=== PATIENT | female | born 1985 | race Caucasian/White ===

== ENCOUNTER 2017-08-29 11:35 | Observation (INO) | payer MEDICAID ==
[2017-08-29] MEDS ORDERED: BETAMETHASONE ACET (6MG/ML) 5ML VIAL IM ONE (11:45)
[2017-08-29] MEDS ORDERED: PRENCAP61 PO (12:55)
[2017-08-29 13:37] LABS: Basophils # (auto) 0 uL; Basophils % (auto) 0.3 % (0.0-2.0); Eosinophils # (auto) 0.1 uL; Eosinophils % (auto) 0.8 % (0.0-7.0); Hematocrit 36.2 % (36.0-46.0); Hemoglobin 12.4 g/dL (12.2-16.2); Lymphocytes # (auto) 1.5 uL; Lymphocytes % (auto) 13.7 % (10.0-50.0); Mean Corpuscular Hemoglobin 30.1 pg (28.0-32.0); Mean Corpuscular Hgb Conc. 34.3 g/dL (32.0-36.0); Mean Corpuscular Volume 87.6 fL (80.0-100.0); Monocytes # (auto) 0.8 uL; Neutrophils # (auto) 8.5 uL; Neutrophils % (auto) 78.2 % (37.0-80.0); Nucleated Red Blood Cells % 0.1 %; Platelet Count (auto) 244 10^3/uL (140-450); Red Blood Cells 4.13 10^6/uL (4.0-5.20); Red Cell Distribution Width 12.8 % (11.8-14.3); White Blood Cell 10.8 10^3/uL (4.4-10.8)
[2017-08-29 13:49] LABS: Albumin 2.9 g/dL (3.4-5.0); BUN/Creatinine Ratio 16.1; Bilirubin, Total 0.3 mg/dL (0.2-1.0); Calcium 8.2 mg/dL (8.5-10.1); Potassium 3.7 mmol/L (3.5-5.1); Uric Acid 4.4 mg/dL (2.6-6.0)
[2017-08-29 13:51] LABS: INR 0.9 (0.9-1.15); Partial Thromboplastin Time 28.4 sec (23.78-33.04); Prothrombin Time 9.7 sec (9.27-12.13)
== END 2017-08-29 14:25 | disposition home or self-care (01) | DRG 566 ==
LOC: LDRP 11:35
PROVIDERS: ADMIT Obstetrics & Gynecology; ATTEND Obstetrics & Gynecology
DX: O13.3 Gestational [pregnancy-induced] hypertension without significant proteinuria, third trimester (principal); G43.909 Migraine, unspecified, not intractable, without status migrainosus; Z3A.30 30 weeks gestation of pregnancy
CPT/HCPCS: 36415; 59025; 76818; 80053; 84550; 85025; 85610; 85730; G0378; J0702

== ENCOUNTER 2017-08-30 14:05 | Observation (INO) | payer MEDICAID ==
[~2017-08-30 14:05] MED LIST: PRENCAP61 PO
[2017-08-30] MEDS ORDERED: BETAMETHASONE ACET (6MG/ML) 5ML VIAL IM SCH (15:00)
== END 2017-08-30 15:00 | disposition home or self-care (01) | DRG 566 ==
LOC: LDRP 14:05
PROVIDERS: ADMIT Obstetrics & Gynecology; ATTEND Obstetrics & Gynecology
DX: O13.3 Gestational [pregnancy-induced] hypertension without significant proteinuria, third trimester (principal); O26.893 Other specified pregnancy related conditions, third trimester; G43.909 Migraine, unspecified, not intractable, without status migrainosus; N89.8 Other specified noninflammatory disorders of vagina; Z3A.30 30 weeks gestation of pregnancy
CPT/HCPCS: 59025; 81002; 96372; G0378

== ENCOUNTER 2017-09-01 09:35 | Observation (INO) | payer MEDICAID ==
[2017-09-01] MEDS ORDERED: LABE200T18 PO (10:52)
[2017-09-01 12:34] LABS: 24 Hr. Total Protein, Urine 393.4 mg/24 Hr (<149.1); Protein, Urine 12.9 mg/dL (0.0-11.9)
== END 2017-09-01 12:45 | disposition home or self-care (01) | DRG 566 ==
LOC: LDRP 09:35
PROVIDERS: ADMIT Specialist; ATTEND Specialist
DX: O13.3 Gestational [pregnancy-induced] hypertension without significant proteinuria, third trimester (principal); O26.893 Other specified pregnancy related conditions, third trimester; G43.909 Migraine, unspecified, not intractable, without status migrainosus; O62.9 Abnormality of forces of labor, unspecified; Z3A.30 30 weeks gestation of pregnancy
CPT/HCPCS: 59025; 76818; 81002; 84156; G0378

== ENCOUNTER 2017-09-06 18:45 | Observation (INO) | payer MEDICAID ==
[~2017-09-06] VITALS: Ht 172.7 cm; Wt 81.6 kg
[~2017-09-06 18:45] MED LIST changes: +LABE200T18 PO
== END 2017-09-06 21:09 | disposition home or self-care (01) | DRG 566 ==
LOC: LDRP 18:45
PROVIDERS: ADMIT Obstetrics & Gynecology; ATTEND Obstetrics & Gynecology
DX: O13.3 Gestational [pregnancy-induced] hypertension without significant proteinuria, third trimester (principal); O99.355 Diseases of the nervous system complicating the puerperium; O26.893 Other specified pregnancy related conditions, third trimester; G43.909 Migraine, unspecified, not intractable, without status migrainosus; N89.8 Other specified noninflammatory disorders of vagina; Z87.891 Personal history of nicotine dependence; Z3A.31 31 weeks gestation of pregnancy
CPT/HCPCS: 59025; 76818; 81002; G0378

== ENCOUNTER 2017-09-09 19:17 | Observation (INO) | payer MEDICAID ==
[~2017-09-09] VITALS: Ht 172.7 cm; Wt 85.3 kg
== END 2017-09-09 22:31 | disposition home or self-care (01) | DRG 566 ==
LOC: LDRP 19:17
PROVIDERS: ADMIT Specialist; ATTEND Specialist
DX: O13.3 Gestational [pregnancy-induced] hypertension without significant proteinuria, third trimester (principal); Z3A.31 31 weeks gestation of pregnancy
CPT/HCPCS: 76818; G0378; 59025; 81002

== ENCOUNTER 2017-09-13 10:48 | Observation (INO) | payer MEDICAID ==
[2017-09-13 12:57] LABS: Basophils # (auto) 0 uL; Basophils % (auto) 0.5 % (0.0-2.0); Eosinophils # (auto) 0 uL; Eosinophils % (auto) 0.6 % (0.0-7.0); Hematocrit 34.5 % (36.0-46.0); Hemoglobin 11.8 g/dL (12.2-16.2); Lymphocytes # (auto) 1.2 uL; Mean Corpuscular Hemoglobin 29.5 pg (28.0-32.0); Mean Corpuscular Hgb Conc. 34.1 g/dL (32.0-36.0); Mean Corpuscular Volume 86.4 fL (80.0-100.0); Monocytes # (auto) 0.8 uL; Monocytes % (auto) 10.5 % (0.0-12.0); Neutrophils # (auto) 5.8 uL; Neutrophils % (auto) 73.4 % (37.0-80.0); Platelet Count (auto) 211 10^3/uL (140-450); Red Cell Distribution Width 12.9 % (11.8-14.3); White Blood Cell 7.9 10^3/uL (4.4-10.8)
[2017-09-13 13:13] LABS: INR 0.87 (0.9-1.15); Prothrombin Time 9.4 sec (9.27-12.13)
[2017-09-13 13:15] LABS: Albumin 2.8 g/dL (3.4-5.0); BUN/Creatinine Ratio 13.1; Bilirubin, Total 0.3 mg/dL (0.2-1.0); Calcium 8.3 mg/dL (8.5-10.1); Potassium 4.2 mmol/L (3.5-5.1); Total Protein 6.8 g/dL (6.4-8.2); Uric Acid 4.1 mg/dL (2.6-6.0)
== END 2017-09-13 13:50 | disposition home or self-care (01) | DRG 566 ==
LOC: LDRP 10:48
PROVIDERS: ADMIT Specialist; ATTEND Specialist
DX: O13.3 Gestational [pregnancy-induced] hypertension without significant proteinuria, third trimester (principal); O99.353 Diseases of the nervous system complicating pregnancy, third trimester; G43.909 Migraine, unspecified, not intractable, without status migrainosus; Z87.891 Personal history of nicotine dependence; Z3A.32 32 weeks gestation of pregnancy
CPT/HCPCS: 36415; 59025; 76818; 80053; 81002; 84550; 85025; 85610; 85730; G0378

== ENCOUNTER 2017-10-04 09:55 | Observation (INO) | payer MEDICAID ==
[2017-10-04 11:57] LABS: Basophils # (auto) 0 uL; Basophils % (auto) 0.3 % (0.0-2.0); Eosinophils # (auto) 0.1 uL; Eosinophils % (auto) 0.9 % (0.0-7.0); Hematocrit 36.7 % (36.0-46.0); Hemoglobin 12.4 g/dL (12.2-16.2); Lymphocytes # (auto) 1.4 uL; Lymphocytes % (auto) 14.7 % (10.0-50.0); Mean Corpuscular Hgb Conc. 33.9 g/dL (32.0-36.0); Mean Corpuscular Volume 85.6 fL (80.0-100.0); Monocytes # (auto) 0.6 uL; Monocytes % (auto) 6.9 % (0.0-12.0); Neutrophils # (auto) 7.2 uL; Neutrophils % (auto) 77.2 % (37.0-80.0); Nucleated Red Blood Cells % 0.1 %; Platelet Count (auto) 223 10^3/uL (140-450); Red Blood Cells 4.28 10^6/uL (4.0-5.20); Red Cell Distribution Width 13.8 % (11.8-14.3); White Blood Cell 9.3 10^3/uL (4.4-10.8)
[2017-10-04 12:08] LABS: Protein, Urine 10.1 mg/dL (0.0-11.9)
[2017-10-04 12:10] LABS: INR 0.85 (0.9-1.15); Partial Thromboplastin Time 27.1 sec (23.78-33.04); Prothrombin Time 9.2 sec (9.27-12.13)
[2017-10-04 12:20] LABS: 24 Hr. Total Protein, Urine 313.1 mg/24 Hr (<149.1)
[2017-10-04 12:45] LABS: Albumin 2.7 g/dL (3.4-5.0); BUN/Creatinine Ratio 10.5; Bilirubin, Total 0.3 mg/dL (0.2-1.0); Calcium 8.1 mg/dL (8.5-10.1); Potassium 3.5 mmol/L (3.5-5.1); Total Protein 7.1 g/dL (6.4-8.2); Uric Acid 4.7 mg/dL (2.6-6.0)
== END 2017-10-04 13:15 | disposition home or self-care (01) | DRG 566 ==
LOC: LDRP 09:55
PROVIDERS: ADMIT Specialist; ATTEND Specialist
DX: O13.3 Gestational [pregnancy-induced] hypertension without significant proteinuria, third trimester (principal); Z3A.35 35 weeks gestation of pregnancy
CPT/HCPCS: 36415; 59025; 76818; 80053; 81002; 84156; 84550; 85025; 85610; 85730; G0378

== ENCOUNTER 2017-10-11 10:13 | Observation (INO) | payer MEDICAID | END 2017-10-11 11:50 | disposition home or self-care (01) | DRG 566 | LOC: LDRP 10:13 | PROVIDERS: ADMIT Specialist; ATTEND Specialist | DX: O13.3 Gestational [pregnancy-induced] hypertension without significant proteinuria, third trimester (principal); O99.353 Diseases of the nervous system complicating pregnancy, third trimester; G43.909 Migraine, unspecified, not intractable, without status migrainosus; Z3A.36 36 weeks gestation of pregnancy | CPT/HCPCS: 59025; 76818; 81002; G0378 ==

== ENCOUNTER 2017-10-13 11:02 | Observation (INO) | payer MEDICAID | END 2017-10-13 15:00 | disposition home or self-care (01) | DRG 566 | LOC: LDRP 11:02 | PROVIDERS: ADMIT Specialist; ATTEND Specialist | DX: O13.3 Gestational [pregnancy-induced] hypertension without significant proteinuria, third trimester (principal); Z3A.36 36 weeks gestation of pregnancy | CPT/HCPCS: 59025; 76818; 81002; G0378 ==

== ENCOUNTER 2017-10-17 09:00 | Observation (INO) | payer MEDICAID ==
[2017-10-17] MEDS ORDERED: LABETALOL HCL 200 MG TAB PO ONE (09:15)
[2017-10-17 10:23] LABS: Basophils # (auto) 0 uL; Basophils % (auto) 0.2 % (0.0-2.0); Eosinophils # (auto) 0.1 uL; Eosinophils % (auto) 0.7 % (0.0-7.0); Hematocrit 37.3 % (36.0-46.0); Hemoglobin 12.5 g/dL (12.2-16.2); Lymphocytes # (auto) 1.6 uL; Lymphocytes % (auto) 13.8 % (10.0-50.0); Mean Corpuscular Hgb Conc. 33.5 g/dL (32.0-36.0); Mean Corpuscular Volume 83.7 fL (80.0-100.0); Monocytes # (auto) 0.8 uL; Monocytes % (auto) 7.2 % (0.0-12.0); Neutrophils # (auto) 8.8 uL; Neutrophils % (auto) 78.1 % (37.0-80.0); Nucleated Red Blood Cells % 0.1 %; Platelet Count (auto) 230 10^3/uL (140-450); Red Blood Cells 4.45 10^6/uL (4.0-5.20); Red Cell Distribution Width 14.1 % (11.8-14.3); White Blood Cell 11.2 10^3/uL (4.4-10.8)
[2017-10-17 10:32] LABS: INR 0.86 (0.9-1.15); Partial Thromboplastin Time 28.5 sec (23.78-33.04); Prothrombin Time 9.3 sec (9.27-12.13)
[2017-10-17 10:34] LABS: Albumin 2.7 g/dL (3.4-5.0); BUN/Creatinine Ratio 17.7; Bilirubin, Total 0.3 mg/dL (0.2-1.0); Calcium 8.1 mg/dL (8.5-10.1); Potassium 3.8 mmol/L (3.5-5.1); Uric Acid 5.8 mg/dL (2.6-6.0)
== END 2017-10-17 10:50 | disposition home or self-care (01) | DRG 566 ==
LOC: LDRP 09:00
PROVIDERS: ADMIT Specialist; ATTEND Specialist
DX: O13.3 Gestational [pregnancy-induced] hypertension without significant proteinuria, third trimester (principal); O99.353 Diseases of the nervous system complicating pregnancy, third trimester; G43.909 Migraine, unspecified, not intractable, without status migrainosus; Z87.891 Personal history of nicotine dependence; Z3A.37 37 weeks gestation of pregnancy
CPT/HCPCS: 36415; 59025; 76818; 80053; 81002; 84550; 85025; 85610; 85730; G0378

== ENCOUNTER 2017-10-20 10:58 | Observation (INO) | payer MEDICAID | END 2017-10-20 13:02 | disposition home or self-care (01) | DRG 566 | LOC: LDRP 10:58 | PROVIDERS: ADMIT Obstetrics & Gynecology; ATTEND Obstetrics & Gynecology | DX: O13.3 Gestational [pregnancy-induced] hypertension without significant proteinuria, third trimester (principal); Z3A.37 37 weeks gestation of pregnancy | CPT/HCPCS: 59025; 76818; 81002; G0378 ==

== ENCOUNTER 2017-10-25 12:03 | Observation (INO) | payer MEDICAID | END 2017-10-25 13:15 | disposition home or self-care (01) | DRG 566 | LOC: LDRP 12:03 | PROVIDERS: ADMIT Specialist; ATTEND Specialist | DX: O13.3 Gestational [pregnancy-induced] hypertension without significant proteinuria, third trimester (principal); O99.353 Diseases of the nervous system complicating pregnancy, third trimester; G43.909 Migraine, unspecified, not intractable, without status migrainosus; Z87.891 Personal history of nicotine dependence; Z3A.38 38 weeks gestation of pregnancy | CPT/HCPCS: 59025; 76818; 81002; G0378 ==

== ENCOUNTER 2017-10-28 11:10 | Observation (INO) | payer MEDICAID | END 2017-10-28 12:25 | disposition home or self-care (01) | DRG 566 | LOC: LDRP 11:10 | PROVIDERS: ADMIT Obstetrics & Gynecology; ATTEND Obstetrics & Gynecology | DX: O13.3 Gestational [pregnancy-induced] hypertension without significant proteinuria, third trimester (principal); Z3A.38 38 weeks gestation of pregnancy | CPT/HCPCS: 59025; 76818; 81002; G0378 ==

== ENCOUNTER 2017-11-01 10:14 | Observation (INO) | payer MEDICAID | END 2017-11-01 12:45 | disposition home or self-care (01) | DRG 566 | LOC: LDRP 10:14 | PROVIDERS: ADMIT Specialist; ATTEND Specialist | DX: O13.3 Gestational [pregnancy-induced] hypertension without significant proteinuria, third trimester (principal); Z3A.39 39 weeks gestation of pregnancy | CPT/HCPCS: 59025; 76818; 81002; G0378 ==

== ENCOUNTER 2017-11-05 08:12 | Inpatient (IN) | payer MEDICAID ==
[~2017-11-05] VITALS: Ht 172.7 cm; Wt 72.6 kg
[2017-11-05] MEDS ORDERED: LACTATED RINGER'S 1,000 ML IV SCH (08:37)
[2017-11-05] MEDS ORDERED: LACT. RINGERS/OXYTOCIN 20UNITS 1,000 ML IV SCH ×3 (08:37→18:02)
[2017-11-05] MEDS ORDERED: PHISODERM TOP SOLN 240ML BTL TOP PRN (08:45)
[2017-11-05] MEDS ORDERED: WITCH HAZEL-GLYCERIN PAD TOP PRN (08:45)
[2017-11-05] MEDS ORDERED: DERMOPLAST 60ML BOTTLE TOP PRN (08:45)
[2017-11-05] MEDS ORDERED: LIDOCAINE 2% (LOCAL ANESTH.) PF 5ml SDV ID ONE (08:45)
[2017-11-05 09:40] LABS: Basophils # (auto) 0 uL; Basophils % (auto) 0.4 % (0.0-2.0); Eosinophils # (auto) 0 uL; Eosinophils % (auto) 0.5 % (0.0-7.0); Hematocrit 37.1 % (36.0-46.0); Hemoglobin 12.5 g/dL (12.2-16.2); Lymphocytes # (auto) 1.1 uL; Lymphocytes % (auto) 13.6 % (10.0-50.0); Mean Corpuscular Hemoglobin 28.2 pg (28.0-32.0); Mean Corpuscular Hgb Conc. 33.8 g/dL (32.0-36.0); Mean Corpuscular Volume 83.4 fL (80.0-100.0); Monocytes # (auto) 0.5 uL; Monocytes % (auto) 6.8 % (0.0-12.0); Neutrophils # (auto) 6.3 uL; Neutrophils % (auto) 78.7 % (37.0-80.0); Nucleated Red Blood Cells % 0.1 %; Platelet Count (auto) 243 10^3/uL (140-450); Red Blood Cells 4.44 10^6/uL (4.0-5.20); Red Cell Distribution Width 14.4 % (11.8-14.3)
[2017-11-05 09:53] LABS: INR 0.84 (0.9-1.15); Partial Thromboplastin Time 28.6 sec (23.78-33.04); Prothrombin Time 9.1 sec (9.27-12.13)
[2017-11-05 09:57] LABS: Albumin 2.7 g/dL (3.4-5.0); BUN/Creatinine Ratio 16.3; Calcium 8.2 mg/dL (8.5-10.1); Potassium 3.6 mmol/L (3.5-5.1)
[2017-11-05 10:00] LABS: Bilirubin, Total 0.3 mg/dL (0.2-1.0); Total Protein 7.2 g/dL (6.4-8.2)
[2017-11-05 10:18] LABS: Alcohol, Urine < 3.0 mg/dL (0-5); Amphetamine Screen, Urine NEGATIVE (NEGATIVE); Barbiturate Scree,Urine NEGATIVE (NEGATIVE); Benzodiazephine Screen, Urine NEGATIVE (NEGATIVE); Cannabinoid Screen, Urine NEGATIVE (NEGATIVE); Cocaine Screen, Urine NEGATIVE (NEGATIVE); Opiate Scree,Urine NEGATIVE (NEGATIVE); Phencyclidine Screen, Urine NEGATIVE (NEGATIVE)
[2017-11-05 10:21] LABS: Urine Bacteria FEW /hpf (None Seen); Urine Blood Negative /uL (Negative); Urine Specific Gravity 1.005 (1.001-1.035); Urine WBC 1 /hpf (0 - 5)
[2017-11-05] MEDS ORDERED: PROMETHAZINE HCL 25 MG/ML 1ML IV PRN (16:45)
[2017-11-05] MEDS ORDERED: NALBUPHINE HCL 10 MG/1ml INJECTION IV PRN (16:45)
[2017-11-05] MEDS ORDERED: TERBUTALINE SULFATE 1 MG/ML 1ML VIAL SC ONE (18:15)
[2017-11-05] MEDS ORDERED: NALOXONE HCL 0.4 MG/ML VIAL IV ONE (19:30)
[2017-11-05] MEDS ORDERED: fentaNYL CITRATE 100 MCG/2 ML VL IV ONE (19:30)
[2017-11-05] MEDS ORDERED: fentaNYL W ROPIVACAINE 150 ML EPI SCH (19:30)
[2017-11-05] MEDS ORDERED: LIDOCAINE HCL 2 %PF INJ 10ML AMP IJ ONE (19:30)
[2017-11-05] MEDS ORDERED: ePHEDrine SULFATE 50 MG/ML AMP IV ONE (19:30)
[2017-11-05] MEDS ORDERED: ACETAMINOPHEN/CODEINE#3 (300/30mg) TAB PO ONE (20:30)
[2017-11-05] MEDS ORDERED: IBUPROFEN 600 MG TAB PO PRN (20:30)
[2017-11-05] MEDS: IBUPROFEN 600 MG TAB PO PRN (21:02)
[2017-11-06 03:00] VITALS: BP 133/80
[2017-11-06 07:00] VITALS: BP 139/88
[2017-11-06] MEDS: IBUPROFEN 600 MG TAB PO PRN (08:10)
[2017-11-06] MEDS ORDERED: DOCUSATE CALCIUM 240 MG CAP PO SCH (10:00)
[2017-11-06 11:00] VITALS: BP 121/62
[2017-11-06 21:00] VITALS: BP 145/87
[2017-11-07 07:05] LABS: Rubella Antibodies, IgG 3.35 index (Immune >0.99)
== END 2017-11-06 21:00 | disposition home or self-care (01) | DRG 560 ==
LOC: OBSVTOIN 08:12 → LDRP 08:12
PROVIDERS: ADMIT Specialist; ATTEND Specialist
PROC: 10E0XZZ Delivery of Products of Conception, External Approach (ICD-10-PCS; principal; 2017-11-05)
PROC: 0W8NXZZ Division of Female Perineum, External Approach (ICD-10-PCS; 2017-11-05)
DX: O13.4 Gestational [pregnancy-induced] hypertension without significant proteinuria, complicating childbirth (principal); O99.353 Diseases of the nervous system complicating pregnancy, third trimester; G43.909 Migraine, unspecified, not intractable, without status migrainosus; O26.893 Other specified pregnancy related conditions, third trimester; N89.8 Other specified noninflammatory disorders of vagina; O62.9 Abnormality of forces of labor, unspecified; Z87.891 Personal history of nicotine dependence; Z3A.39 39 weeks gestation of pregnancy; Z88.6 Allergy status to analgesic agent
CPT/HCPCS: 36415; 59025; 59409; 80053; 80307; 81001; 84550; 85025; 85610; 85730; 86762; 86850; 86900; 86901; 96365; 96366; 96374; 96375; G0378; J2001; J2590

== ENCOUNTER 2021-05-06 09:45 | Emergency (ER) | payer MEDICAID ==
[~2021-05-06] VITALS: Ht 175.3 cm; Wt 72.6 kg
[~2021-05-06 09:45] MED LIST changes: -LABE200T18 PO; +LABE200T7 PO
[2021-05-06 09:59] VITALS: BP 137/87
[2021-05-06 11:04] LABS: Basophils # (auto) 0 10 ^3/uL (0-0.2); Basophils % (auto) 0.6 % (0.0-2.0); Eosinophils # (auto) 0.2 10 ^3/uL (0-0.8); Eosinophils % (auto) 2.6 % (0.0-7.0); Hematocrit 45.1 % (36.0-46.0); Hemoglobin 15.5 g/dL (12.2-16.2); Lymphocytes # (auto) 1.4 10 ^3/uL (0.4-5.4); Mean Corpuscular Hemoglobin 30.3 pg (28.0-32.0); Mean Corpuscular Hgb Conc. 34.4 g/dL (32.0-36.0); Mean Corpuscular Volume 88.3 fL (80.0-100.0); Monocytes # (auto) 0.6 10 ^3/uL (0-1.3); Monocytes % (auto) 8.2 % (0.0-12.0); Neutrophils # (auto) 5.1 10 ^3/uL (1.6-8.6); Neutrophils % (auto) 69.6 % (37.0-80.0); Nucleated Red Blood Cells % 0.1 %; Red Blood Cells 5.11 10^6/uL (4.0-5.20); Red Cell Distribution Width 13.1 % (11.8-14.3); White Blood Cell 7.3 10^3/uL (4.4-10.8)
[2021-05-06 11:30] LABS: Albumin 4.5 g/dL (3.4-5.0); Calcium 9.1 mg/dL (8.5-10.1); Potassium 4.4 mmol/L (3.5-5.1)
[2021-05-06 11:35] LABS: BUN/Creatinine Ratio 17.5; Bilirubin, Total 0.4 mg/dL (0.2-1.0); Total Protein 8.8 g/dL (6.4-8.2)
[2021-05-06] MEDS ORDERED: IOHEXOL 300 MG/ML 100ML BOTTLE IJ ONE (11:53)
== END 2021-05-06 16:33 | disposition home or self-care (01) ==
LOC: ER 09:45
DX: K62.5 Hemorrhage of anus and rectum (principal); K51.90 Ulcerative colitis, unspecified, without complications; F17.210 Nicotine dependence, cigarettes, uncomplicated; Z88.6 Allergy status to analgesic agent
CPT/HCPCS: 36415; 74177; 80053; 84484; 85025; 86850; 86900; 86901; 93005; 99285; Q9967